=== PATIENT | male | born 1945 | race Caucasian/White ===

== ENCOUNTER → 2022-08-06 08:42 | Outpatient (CLI) | payer OTHER, SELFPAY ==
--- NOTE | 2022-08-06 | DI.NM.S_ITS ---
PROCEDURE: NM BONE SCAN WHOLE BODY RADIOPHARMACEUTICAL: 21.7 mCi Tc-99m MDP IV. INDICATIONS: Prostate Cancer TECHNIQUE: Delayed whole-body scintigrams were obtained approximately 3-4 hours after intravenous injection of radiotracer. Anterior and posterior views were acquired from vertex to feet. Additional left and right oblique views of the pelvis and hips were obtained. COMPARISON: [facility], CT, CT CHEST ABD PEL W CON, 08/06/2022, 11:29. Outside Film, CT, CT IVP, 07/22/2021, 15:54. FINDINGS: No lesions are identified in skull, sternum, clavicles, scapulae, ribs, bony pelvis, and visualized shafts of the long bones. There are foci of increased uptake in cervical, thoracic and lumbar spine most likely secondary to degenerative disc and facet disease; early metastasis to spine could be obscured by degenerative changes. There are foci of increased periarticular activity most pronounced in shoulders, compatible with degenerative/arthritic changes. IMPRESSION: 1. No definitive scintigraphic findings to suggest osseous metastasis. Dictated by: Tatiana Maldonado M.D. on 08/06/2022 at 15:02 Approved by: Tatiana Maldonado M.D. on 08/06/2022 at 15:04
--- NOTE | 2022-08-06 | DI.CT.S_ITS ---
PROCEDURE: CT CHEST ABD PEL W CON INDICATIONS: Prostate Cancer TECHNIQUE: After the administration of oral and intravenous contrast, axial sections acquired from the supraclavicular neck to the pubic symphysis. Coronal and sagittal reformats were performed. For radiation dose reduction, the following was used: automated exposure control, adjustment of mA and/or kV according to patient size. COMPARISON: Outside Film, CT, CT IVP, 07/22/2021, 15:54. FINDINGS: CHEST: Lower Neck: No enlarged lymph nodes. Axillae: No enlarged lymph nodes. Lungs: No consolidation or pleural effusion. Thin linear opacity anterior aspect of the right lower lobe possibly associated with an accessory fissure (3/151, 5/18) could represent scarring or an intrapulmonary lymph node. 2 mm nodule anterior left upper lobe (3/96). Heart: No pericardial effusion. Multivessel coronary artery calcifications and/or stents. Thoracic Vessels: The aorta and pulmonary arteries demonstrate normal size. Mediastinum and [place]ie: No enlarged lymph nodes. Esophagus: No wall thickening. ABDOMEN: Liver: Small cyst anterior left lobe redemonstrated. A few scattered small hypodensities are present, too small to characterize Gallbladder: Unremarkable. Biliary ducts: Unremarkable. Pancreas: Unremarkable. Spleen: Unremarkable. Adrenal Glands: Unremarkable. Kidneys and Ureters: No hydronephrosis. Small focus of cortical scarring left upper kidney. Stomach and Bowel: No bowel obstruction. Peritoneum: No abnormal intraperitoneal fluid. No free air. Abdominal Nodes: No retroperitoneal or mesenteric adenopathy by size criteria. Vessels: Aorta and inferior vena cava are normal in size. PELVIS: Pelvic Organs: Prostate gland fiducial markers are present. Bladder: Possible wall thickening Pelvic Nodes: No enlarged lymph nodes. Bones: Multilevel degenerative change of the visualized spine. IMPRESSION: 1. No lymphadenopathy identified within the abdomen or pelvis. 2. Tiny nonspecific left upper lobe pulmonary nodule, indeterminate. Attention on follow-up is recommended. 3. No thoracic adenopathy or pleural effusion. Dictated by: Luis Walker M.D. on 08/06/2022 at 12:55 Approved by: Luis Walkre M.D. on 08/06/2022 at 13:21
[2022-08-06 09:53] LABS: Estimated Glomerular Filt Rate > 60 mL/min (>60)
== END ==
PROVIDERS: Radiology Diagnostic Radiology; PCP Internal Medicine; Referring Provider Internal Medicine Hematology & Oncology; Visit Provider Internal Medicine Hematology & Oncology
DX: C61 Malignant neoplasm of prostate (principal)
CPT/HCPCS: 36415; 71260; 74177; 78306; 82565; A9503; Q9967

== ENCOUNTER → 2023-09-04 10:38 | Outpatient (CLI) | payer OTHER, SELFPAY ==
--- NOTE | 2023-09-04 10:39 | DI.NM.S_ITS ---
PROCEDURE: [place] BONE SCAN WHOLE BODY RADIOPHARMACEUTICAL: 19.0 mCi Tc-99m MDP IV. INDICATIONS: PROSTATE CANCER TECHNIQUE: Delayed whole-body scintigrams were obtained approximately 3-4 hours after intravenous injection of radiotracer. Anterior and posterior views were acquired from vertex to feet. COMPARISON: [place], [place], [place] BONE SCAN WHOLE BODY, 08/06/2022, 11:58. FINDINGS: No suspicious radiotracer uptake. Mild degenerative uptake in the AC joints, knees, ankles. Similar asymmetric radiotracer uptake along the facet joints of the cervical spine. IMPRESSION: No suspicious radiotracer uptake. Dictated by: Adi Prasad M.D. on 09/04/2023 at 15:23 Approved by: Adi Prasad M.D. on 09/04/2023 at 15:25
== END ==
PROVIDERS: PCP Internal Medicine; Referring Provider Internal Medicine Hematology & Oncology; Visit Provider Internal Medicine Hematology & Oncology
DX: C61 Malignant neoplasm of prostate (principal)
CPT/HCPCS: 78306; A9503